=== PATIENT | female | born 1980 | race Caucasian/White ===

== ENCOUNTER 2023-03-16 16:18 | Emergency (ER) | payer OTHER ==
[2023-03-16] MEDS ORDERED: ACETAMINOPHEN 500 MG TABLET (FP) PO ONE (16:30)
[2023-03-16] MEDS ORDERED: ACETAMINOPHEN 500 MG TABLET (FP) ONE (16:33)
[2023-03-16 16:47] VITALS: BP 106/62; PULSE 71; RESP 16; TEMP 97.8; BMI 27.4
== END 2023-03-16 17:52 | disposition home or self-care (01) ==
LOC: FER 16:18
DX: M25.571 Pain in right ankle and joints of right foot (principal)
CPT/HCPCS: 73610-TC-RT-FY; 73630-TC-RT-FY; 99283-25